=== PATIENT | female | born 1950 | race Two or more races ===

== ENCOUNTER 2020-08-20 14:00 | Outpatient (CLI) | payer OTHER | END 2020-08-20 15:55 | disposition home or self-care (01) | LOC: PPH VACUNA 14:00 | PROVIDERS: ATTEND Emergency Medicine Pediatric Emergency Medicine | DX: Z23 Encounter for immunization (principal) ==

== ENCOUNTER 2022-02-22 11:29 | Emergency (ER) | payer OTHER ==
[~2022-02-22] VITALS: Ht 167.6 cm; Wt 122.5 kg
[2022-02-22] MEDS ORDERED: LASIX20 MG PO (11:44)
[2022-02-22] MEDS ORDERED: CLARITIN10 M1 PO (11:44)
[2022-02-22] MEDS ORDERED: AVAPRO75 MG PO (11:44)
[2022-02-22] MEDS ORDERED: REPAGLINIDE1 MG PO (11:45)
== END 2022-02-22 14:20 | disposition home or self-care (01) ==
LOC: ER 11:29
DX: M54.50 Low back pain, unspecified (principal); M48.061 Spinal stenosis, lumbar region without neurogenic claudication; E11.9 Type 2 diabetes mellitus without complications; Z79.84 Long term (current) use of oral hypoglycemic drugs; I10 Essential (primary) hypertension; Z88.2 Allergy status to sulfonamides